=== PATIENT | female | born 1995 | race Two or more races ===

== ENCOUNTER 2018-08-14 11:41 | Emergency (ER) | payer SELFPAY ==
[~2018-08-14] VITALS: Ht 160 cm; Wt 55.3 kg
[2018-08-14 12:20] VITALS: BP 121/99
[2018-08-14] MEDS: AMOXICILLIN 500 MG CAPSULE PO ONE ×2 (14:45→15:27)
== END 2018-08-14 16:18 | disposition home or self-care (01) ==
LOC: ER 13:46
DX: J02.0 Streptococcal pharyngitis (principal); F12.10 Cannabis abuse, uncomplicated; F17.200 Nicotine dependence, unspecified, uncomplicated; Z90.5 Acquired absence of kidney
CPT/HCPCS: 87070; 87430; 99283